=== PATIENT | female | born 1985 | race American Indian/Alaskan Native ===

== ENCOUNTER 2021-09-13 08:43 | Emergency (ER) | payer SELFPAY ==
--- NOTE | 2021-09-13 12:35 | Emergency Department Report ---
ED Back Pain/Injury HPI - General Chief Complaint: Back Pain/Injury Stated Complaint: BACK PAIN Time Seen by Provider: 09/13/21 12:32 Source: patient Limitations: No Limitations - History of Present Illness Initial Comments: Patient is a 35-year-old female that comes to the emergency room complaining of low back pain after lifting boxes at work. She denies any incontinence. Pain does not wake her from sleep. She has no fever. She has no dysuria. No vaginal discharge. No CVA tenderness on exam. No abdominal pain. No nausea vomiting diarrhea. Pain is worse with movement and improved with remaining still. Patient is taking nothing prior to arrival in the ER. MD Complaint: back pain -: Gradual, days(s) Similar Symptoms Previously: No Place: work Radiation: none Severity: mild Severity scale (0 -10): 3 Quality: aching Consistency: intermittent Improves With: immobilization Worsens With: movement Context: while lifting Associated Symptoms: denies other symptoms - Related Data Previous Rx's Medication Instructions Recorded Last Taken Type Cyclobenzaprine [Flexeril] 10 mg PO TID PRN #10 tablet 09/13/21 Unknown Rx Ibuprofen [Motrin] 800 mg PO Q8HR PRN #30 tablet 09/13/21 Unknown Rx Allergies Allergy/AdvReac Type Severity Reaction Status Date / Time No Known Allergies Allergy Verified 09/13/21 14:26 ED Review of Systems ROS: Stated complaint: BACK PAIN Other details as noted in HPI Comment: All other systems reviewed and negative ED Past Medical Hx - Past Medical History Previous Medical History?: No - Surgical History Past Surgical History?: Yes Hx Cholecystectomy: Yes - Family History Family history: no significant - Social History Smoking Status: Never Smoker Substance Use Type: None - Medications Home Medications: Home Medications Medication Instructions Recorded Confirmed Last Taken Type Cyclobenzaprine [Flexeril] 10 mg PO TID PRN #10 tablet 09/13/21 Unknown Rx Ibuprofen [Motrin] 800 mg PO Q8HR PRN #30 tablet 09/13/21 Unknown Rx ED Physical Exam - General Limitations: No Limitations General appearance: alert, in no apparent distress - Head Head exam: Present: atraumatic, normocephalic - Eye Eye exam: Present: normal appearance - ENT ENT exam: Present: mucous membranes moist - Neck Neck exam: Present: normal inspection - Respiratory Respiratory exam: Present: normal lung sounds bilaterally. Absent: respiratory distress - Cardiovascular Cardiovascular Exam: Present: regular rate, normal rhythm. Absent: systolic murmur, diastolic murmur, rubs, gallop - GI/Abdominal GI/Abdominal exam: Present: soft, normal bowel sounds - Extremities Exam Extremities exam: Present: normal inspection - Back Exam Back exam: Present: normal inspection - Neurological Exam Neurological exam: Present: alert, oriented X3 - Psychiatric Psychiatric exam: Present: normal affect, normal mood - Skin Skin exam: Present: warm, dry, intact, normal color. Absent: rash ED Course Vital Signs 09/13/21 09/13/21 09:04 14:37 Temperature 98.6 F 98 F Pulse Rate 76 74 Respiratory 12 16 Rate Blood Pressure 101/77 Blood Pressure 122/62 [Right] O2 Sat by Pulse 100 100 Oximetry ED Medical Decision Making - Medical Decision Making Vital Signs 09/13/21 09:04 Temperature 98.6 F Pulse Rate 76 Respiratory 12 Rate Blood Pressure 101/77 O2 Sat by Pulse 100 Oximetry Patient educated on proper lifting. Medicated with Decadron IM and Motrin in the ER. I am able to reproduce the pain with movement. Patient being discharged home with discharge plan of care including diet, activity, medications and follow-up. She verbalizes understanding of plan of care - Differential Diagnosis musculoskeletal strain Critical care attestation.: If time is entered above; I have spent that time in minutes in the direct care of this critically ill patient, excluding procedure time. ED Disposition Clinical Impression: Lumbar strain Qualifiers: Encounter type: initial encounter Qualified Code(s): S39.012A - Strain of muscl e, fascia and tendon of lower back, initial encounter Disposition: HOME / SELF CARE / HOMELESS Is pt being admited?: No Does the pt Need Aspirin: No Condition: Stable Instructions: Lumbar Sprain, Muscle Strain, [id number] Additional Instructions: Stay well-hydrated with water medications as ordered today Note you cannot drive or operate machinery with Flexeril Proper body mechanics and lifting to prevent reinjury If pain persist in 48 hours follow-up with PCP. I have given you referral below Prescriptions: Cyclobenzaprine [Flexeril] 10 mg PO TID PRN #10 tablet PRN Reason: Muscle Spasm Ibuprofen [Motrin] 800 mg PO Q8HR PRN #30 tablet PRN Reason: Pain, Moderate (4-6) Referrals: WINNIE MONTALVO MD [Primary Care Provider] - 3-5 Days Forms: Work/School Release Form(ED) Time of Disposition: 12:34
[2021-09-13] MEDS ORDERED: dexAMETHasone 4 MG/ML VIAL IM SCH (14:30)
[2021-09-13] MEDS ORDERED: IBUPROFEN 800 MG TAB PO SCH (14:30)
[2021-09-13 14:38] VITALS: BP 122/62
== END 2021-09-13 14:36 | disposition home or self-care (01) ==
LOC: ED 08:43
DX: S39.012A Strain of muscle, fascia and tendon of lower back, initial encounter (principal); Z90.49 Acquired absence of other specified parts of digestive tract; Z98.890 Other specified postprocedural states; Z79.899 Other long term (current) drug therapy; X50.0XXA Overexertion from strenuous movement or load, initial encounter; Y93.89 Activity, other specified; Y92.89 Other specified places as the place of occurrence of the external cause; Y99.8 Other external cause status
CPT/HCPCS: 96372; 99282

== ENCOUNTER 2021-10-25 07:28 | Emergency (ER) | payer SELFPAY ==
[2021-10-25] MEDS ORDERED: predniSONE 20 MG TAB PO ONE (08:05)
[2021-10-25] MEDS ORDERED: diphenhydrAMINE 25 MG CAP PO ONE (08:05)
[2021-10-25] MEDS ORDERED: FAMOTIDINE 20 MG TAB PO ONE (08:05)
--- NOTE | 2021-10-25 08:06 | Emergency Department Report ---
ED General Adult HPI - General Chief complaint: Allergic Reaction Stated complaint: ALLERGIC REACTION/OUTBREAK PUI?: No Time Seen by Provider: 10/25/21 07:37 Source: patient, RN notes reviewed Mode of arrival: Ambulatory Limitations: No Limitations - History of Present Illness Initial comments: The patient was evaluated in the emergency department for symptoms described in the history of present illness. He/she was evaluated in the context of the global COVID-19 pandemic, which necessitated consideration that the patient mi ght be at risk for infection with the virus that causes COVID-19. Institutional protocols and algorithms that pertain to the evaluation of patients at risk for COVID-19 are in a state of rapid change based on information released by regulatory bodies including the CDC and federal and state organizations. These policies and algorithms were followed during the patient's care in the emergency department. Please note that these policies, procedures and recommendations changed on a rapid basis. During the history and physical examination, I am chaperoned by Steven This is a pleasant and cooperative 35-year-old female who states that she is not . She presents to the department today with a complaint of diffuse skin burning and itching, after being bitten or stung by an unknown creature, perhaps an insect, on her right posterior shoulder. She does not have any stridor, or difficulty breathing. The patient reports she did not take any medication because [facility] is closed. She has Vel[facility]quez's at the bedside, and is currently speaking on her cellular phone. She denies physical pain and additional complaints. Reports that her "allergy" to epinephrine is "hallucinations." -: Sudden, This morning Location: back, left, right, upper extremity, lower extremity Severity scale (0 -10): 0 Quality: other (Pruritic burning) Consistency: constant Improves with: none Worsens with: none - Related Data Previous Rx's Medication Instructions Recorded Last Taken Type Ibuprofen [Motrin] 800 mg PO Q8HR PRN #30 tablet 09/13/21 Unknown Rx EPINEPHrine [Epipen 2-Neville] 0.3 mg IM DAILY PRN #2 ml 10/25/21 Unknown Rx Famotidine [Pepcid] 20 mg PO BID #10 tablet 10/25/21 Unknown Rx diphenhydrAMINE [Benadryl] 50 mg PO Q8HR PRN #20 capsule 10/25/21 Unknown Rx predniSONE [Deltasone] 40 mg PO QDAY #8 tab 10/25/21 Unknown Rx Allergies Allergy/AdvReac Type Severity Reaction Status Date / Time epinephrine AdvReac Unknown Verified 10/25/21 07:43 ED Review of Systems ROS: Stated complaint: ALLERGIC REACTION/OUTBREAK Other details as noted in HPI Comment: All other systems reviewed and negative Skin: rash, lesions, change in color, pruritus ED Past Medical Hx - Surgical History Hx Cholecystectomy: Yes - Social History Smoking Status: Never Smoker Substance Use Type: None - Medications Home Medications: Home Medications Medication Instructions Recorded Confirmed Last Taken Type Ibuprofen [Motrin] 800 mg PO Q8HR PRN #30 tablet 09/13/21 Unknown Rx EPINEPHrine [Epipen 2-Neville] 0.3 mg IM DAILY PRN #2 ml 10/25/21 Unknown Rx Famotidine [Pepcid] 20 mg PO BID #10 tablet 10/25/21 Unknown Rx diphenhydrAMINE [Benadryl] 50 mg PO Q8HR PRN #20 capsule 10/25/21 Unknown Rx predniSONE [Deltasone] 40 mg PO QDAY #8 tab 10/25/21 Unknown Rx ED Physical Exam - General Limitations: No Limitations General appearance: alert, in no apparent distress - Head Head exam: Present: atraumatic, normocephalic - Eye Eye exam: Present: normal appearance, EOMI. Absent: nystagmus - ENT ENT exam: Present: normal exam, normal orophraynx, mucous membranes moist, normal external ear exam, other (The patient is speaking in full sentences. There is no stridor. There is no dysphonia. The uvula is midline) - Neck Neck exam: Present: normal inspection, full ROM. Absent: tenderness, meningismus - Respiratory Respiratory exam: Present: normal lung sounds bilaterally. Absent: respiratory distress, wheezes, rales, rhonchi, stridor, decreased breath sounds - Cardiovascular Cardiovascular Exam: Present: regular rate, normal rhythm, normal heart sounds. Absent: bradycardia, tachycardia, systolic murmur, diastolic murmur, rubs, gallop - GI/Abdominal GI/Abdominal exam: Present: soft. Absent: distended, tenderness, guarding, rebound, rigid, pulsatile mass - Extremities Exam Extremities exam: Present: normal inspection (Urticaria noted to the bilateral medial thighs, and left anterior for), full ROM, normal capillary refill, other (2+ pulses noted in the bilateral upper and lower extremities. There is no palpable cord. negative Homans sign. Muscular compartments are soft. The pelvis is stable.). Absent: pedal edema, calf tenderness - Back Exam Back exam: Present: normal inspection, full ROM. Absent: tenderness, CVA tenderness (R), CVA tenderness (L), paraspinal tenderness, vertebral tenderness - Neurological Exam Neurological exam: Present: alert, oriented X3, normal gait, other (No facial droop. Tongue midline. Extraocular movements intact bilaterally. Facial sensation intact to light touch in V1, V2, V3 distribution bilaterally. 5 and a 5 strength in 4 extremities. Sensation intact to light touch in 4 extremities.). Absent: motor sensory deficit - Psychiatric Psychiatric exam: Present: normal affect, normal mood - Skin Skin exam: Present: warm, dry, intact, erythema, urticaria. Absent: cyanosis, diaphoretic, petechiae, pallor, abrasion, ecchymosis ED Course Vital Signs 10/25/21 10/25/21 10/25/21 07:35 08:44 09:23 Temperature 98.7 F Pulse Rate 109 H 72 Respiratory 22 20 Rate Blood Pressure 125/88 95/54 [Right] O2 Sat by Pulse 98 100 Oximetry O2 Sat by Pulse 100 Oximetry [ Digit-Finger] 10/25/21 09:24 Temperature Pulse Rate Respiratory Rate Blood Pressure [Right] O2 Sat by Pulse 100 Oximetry O2 Sat by Pulse Oximetry [ Digit-Finger] - Reevaluation(s) Reevaluation #1: 10/25/21 08:41 Differential diagnosis, include but not limited to: Urticaria, allergic reaction Assessment and plan: 35-year-old female with urticarial reaction, without airway involvement. She is speaking on her cell phone, in complete sentences, without airway involvement. She is mildly anxious, but otherwise, not in any acute distress. Tachycardia resolved, heart rate 70s to 80s. Discussed natural history of urticaria, and allergic reaction. Articulated allergy to epinephrine is hallucinations, without airway involvement. This is not an allergic reaction. Patient does not require epinephrine medically at this time. Patient will be treated with Benadryl, Pepcid, and steroids. We will observe this patient in the emergency room. Patient educated as to the natural history of allergic reaction. Return precautions are reviewed. All questions are answered. We will continue to monitor the patient 10/25/21 10:31 The patient is reevaluated multiple times while she is here. Heart rate in the 70s. Saturating 99% on room air. Breathing comfortably in stretcher, no acute respiratory distress, on first reassessment, speaking on cell phone. On second reassessment now napping comfortably. Patient observed in this department for hours without clinical decompensation. She may be discharged with expectant management and outpatient follow-up - Pulse Oximetry Interpretation Digit-Finger Initial Pulse Oximetry Readin O2 Sat by Pulse Oximetry: 100 Actions Taken: none ED Medical Decision Making - Lab Data Vital Signs 10/25/21 07:35 Temperature 98.7 F Pulse Rate 109 H Respiratory 22 Rate Blood Pressure 125/88 [Right] O2 Sat by Pulse 98 Oximetry Critical care attestation.: If time is entered above; I have spent that time in minutes in the direct care of this critically ill patient, excluding procedure time. ED Disposition Clinical Impression: Urticarial rash Disposition: HOME / SELF CARE / HOMELESS Is pt being admited?: No Does the pt Need Aspirin: No Condition: Good Instructions: Allergies, Adult, [id number] Additional Instructions: Allergic reaction symptoms may persist for up to 3 days. Take the medications as needed and directed. Use the epinephrine pen only if patient develops inability to speak, inability to breathe, or inability to tolerate secretions. Please note that hallucinations is not a true allergic reaction. Recommend patient follow-up with an outpatient primary care doctor, rib chopper, or debt collection specialist for dedicated skin testing, to ascertain what she is specifically allergic to. If taking Benadryl, do not drive, consume alcohol, or make important decisions; this medication is sedating. Please return to the emergency room right away with new pain, worsened pain, migration of pain, projectile vomiting, change in mental status, confusion, inability tolerate liquid feeds, new, worsened or different symptoms not present on the initial emergency room evaluation Prescriptions: diphenhydrAMINE [Benadryl] 50 mg PO Q8HR PRN #20 capsule PRN Reason: Allergic Reaction predniSONE [Deltasone] 40 mg PO QDAY #8 tab EPINEPHrine [Epipen 2-Neville] 0.3 mg IM DAILY PRN #2 ml PRN Reason: Allergic Reaction Famotidine [Pepcid] 20 mg PO BID #10 tablet Referrals: [facility] [Provider Group] - 3-5 Days Forms: Work/School Release Form(ED)
[2021-10-25 09:24] VITALS: BP 95/54
== END 2021-10-25 13:29 | disposition home or self-care (01) ==
LOC: ED 07:28
DX: L50.9 Urticaria, unspecified (principal); Z90.49 Acquired absence of other specified parts of digestive tract; Z88.8 Allergy status to other drugs, medicaments and biological substances; Z79.899 Other long term (current) drug therapy
CPT/HCPCS: 99282